=== PATIENT | female | born 1965 | race Caucasian/White ===

== ENCOUNTER 2016-09-25 18:36 | Emergency (ER) | payer MEDICARE, MEDICAID ==
[2016-09-25 19:31] VITALS: BP 116/74
[2016-09-25] MEDS ORDERED: Acetaminophen TAB* 325 MG PO ONE (20:14)
--- NOTE | 2016-09-25 20:50 | RAD ---
INDICATION: Right knee pain after "twisting" injury. COMPARISON: Most recent comparison knee radiograph is dated April 24, 2010 TECHNIQUE: 3 view radiograph of the right knee. FINDINGS: There is an anatomically aligned right knee prosthesis that has been placed since the prior knee radiograph. There are 2 stable proximal tibial medullary screws also unchanged since the prior knee radiograph. There is no joint effusion. IMPRESSION: Interval placement of right knee arthroplasty in this otherwise nonacute knee radiograph. If the patient's symptoms persist, follow-up imaging is recommended.
--- NOTE | 2016-09-25 21:02 | ED ---
Lower Extremity - HPI Summary HPI Summary: 51 yr old female with the chief complaint of right knee pain. The patient has 5 /10 right knee pain, onset this afternoon when she had her right leg planted on ground getting out of car and her daughter was pushing on her to help her get out of the car. The patient complains of pain localized to the medial right knee. she has no other complaints. She has no swelling or bruising. No other complaints. - History of Current Complaint Chief Complaint: UCLowerExtremity Stated Complaint: RIGHT LEG INJURY Time Seen by Provider: 09/25/16 20:08 Hx Last Menstrual Period: APRIL 2015, STATES GOING THROUGH MENOPAUSE - Allergies/Home Medications Allergies/Adverse Reactions: Allergies Allergy/AdvReac Type Severity Reaction Status Date / Time Cyclobenzaprine Allergy Rash Verified 09/25/16 19:33 [From Flexeril] Iodine Allergy Anaphylatic Verified 09/25/16 19:33 Shock Ketorolac Tromethamine Allergy Flushing Verified 09/25/16 19:33 [From Toradol] Naproxen [From Naprosyn] Allergy Rash Verified 09/25/16 19:33 Hydromorphone AdvReac Vomiting Verified 09/25/16 19:33 Home Medications: Home Medications Acetaminophen [Acetaminophen Extra Stren] 1,000 mg PO ONCE PRN 09/25/16 [ History Confirmed 09/25/16] PMH/Surg Hx/FS Hx/Imm Hx Endocrine/Hematology History: Reports: Other Endocrine/Hematological Disorders - she is anticoagulated Cardiovascular History: Reports: Hx Deep Vein Thrombosis Respiratory History: Reports: Hx Asthma - Surgical History Surgery Procedure, Year, and Place: Femoropopliteal Vein Bypass and Left TKA, , RIGHT KNEE REPLACEMENT. MULTIPUL KNEE SURGERIES. [place]. TONSILLECTOMY, 3 C-SECTIONS, GALL BLADDER REMOVAL Infectious Disease History: No Infectious Disease History: Denies: Traveled Outside the [place] in Last 30 Days - Family History Known Family History: Positive: Cardiac Disease, Hypertension, Other - thyroid CA 9mother) - Social History Alcohol Use: Rare Substance Use Type: Reports: None Smoking Status (MU): Never Smoked Tobacco Review of Systems Constitutional: Negative Eyes: Negative Positive: Other - knee pain right All Other Systems Reviewed And Are Negative: Yes Physical Exam Triage Information Reviewed: Yes Vital Signs On Initial Exam: Initial Vitals Temp Pulse Resp BP Pulse Ox 99.2 F 77 16 116/74 100 09/25/16 19:23 09/25/16 19:23 09/25/16 19:23 09/25/16 19:23 09/25/16 19:23 Vital Signs Reviewed: Yes Appearance: Positive: Well-Appearing, No Pain Distress Skin: Positive: Warm Head/Face: Positive: Normal Head/Face Inspection Eyes: Positive: EOMI Respiratory/Lung Sounds: Positive: Other - normal effort Cardiovascular: Positive: Pulses are Symmetrical in both Upper and Lower Extremities Musculoskeletal: Positive: Other - right knee without effusion, without bruising , without deformity. There is a scar from her knee replacement. She has tenderness over the medial collateral ligament. Neurological: Positive: Normal, Sensory/Motor Intact, Alert, Oriented to Person Place, Time, CN Intact II-III Psychiatric: Positive: Normal Diagnostics - Vital Signs Vital Signs Temp Pulse Resp BP Pulse Ox 09/25/16 19:23 99.2 F 77 16 116/74 100 - Laboratory Lab Statement: Any lab studies that have been ordered have been reviewed, and results considered in the medical decision making process. - Radiology knee Xray Interpretation: No Acute Changes Radiology Interpretation Completed By: Radiologist Lower Extremity Course/Dx - Course Course Of Treatment: 51 yr old with medial collateral ligament sprain, and knee pain. DC home, FU with Ortho. - Diagnoses Provider Diagnoses: Medial collateral ligament sprain of knee Discharge - Discharge Plan Condition: Good Disposition: HOME Patient Education Materials: Knee Sprain (ED), Knee Immobilizer (ED) Referrals: Suha Leon, [employer] [Primary Care Provider] - 2 Days
== END 2016-09-25 21:21 | disposition home or self-care (01) ==
LOC: UCCORT 18:36
DX: S83.411A Sprain of medial collateral ligament of right knee, initial encounter (principal); X58.XXXA Exposure to other specified factors, initial encounter; Y93.89 Activity, other specified; Y92.9 Unspecified place or not applicable; Z79.01 Long term (current) use of anticoagulants; Z86.718 Personal history of other venous thrombosis and embolism; J45.909 Unspecified asthma, uncomplicated; Z96.651 Presence of right artificial knee joint; Z90.49 Acquired absence of other specified parts of digestive tract; Z88.5 Allergy status to narcotic agent
CPT/HCPCS: 99213; A9270-GY; G0463

== ENCOUNTER 2018-09-06 12:38 | Emergency (ER) | payer MEDICARE, MEDICAID ==
[2018-09-06 13:02] VITALS: BP 132/77
--- NOTE | 2018-09-06 13:17 | UC ---
Skin Complaint HPI - HPI Summary HPI Summary: small abscess right earlobe x 1 day, started bleeding this morning no pain , no fever, no chills - History of Current Complaint Chief Complaint: UCSkin Time Seen by Provider: 09/06/18 12:56 Stated Complaint: RT EAR COMPLAINT Hx Obtained From: Patient Hx Last Menstrual Period: APRIL 2015, STATES GOING THROUGH MENOPAUSE Onset/Duration: Gradual Onset, Lasting Days - 1, Still Present Timing: Constant Onset Severity: Mild Current Severity: Mild Pain Intensity: 0 Location: Discrete - right earlobe Character: Redness Aggravating Factor(s): Nothing Alleviating Factor(s): Nothing Associated Signs & Symptoms: Positive: Drainage. Negative: Tenderness - Allergy/Home Medications Allergies/Adverse Reactions: Allergies Allergy/AdvReac Type Severity Reaction Status Date / Time cyclobenzaprine Allergy Rash Verified 09/06/18 13:08 hydromorphone Allergy Vomiting Verified 09/06/18 13:08 iodine Allergy Anaphylatic Verified 09/06/18 13:09 Shock ketorolac [From Toradol] Allergy Flushing Verified 09/06/18 13:08 naproxen Allergy Rash Verified 09/06/18 13:08 Home Medications: Home Medications Aspirin 81 mg CHEW TAB* [Aspirin Low Dose TAB*] 81 mg PO DAILY 09/06/18 [ History Confirmed 09/06/18] Cholecalciferol TAB* [Vitamin D TAB*] 50,000 unit PO WEEKLY 09/06/18 [History Confirmed 09/06/18] Levocetirizine Dihydrochloride [Xyzal Allergy 24Hr] 5 mg PO DAILY 09/06/18 [ History Confirmed 09/06/18] raNITIdine HCl [Ranitidine HCl] 75 mg PO DAILY PRN 09/06/18 [History Confirmed 09/06/18] PMH/Surg Hx/FS Hx/Imm Hx - Additional Past Medical History Additional PMH: PERIPHERIAL VASCULAR DISEASE OSTEOARTHRITIS DJD - Surgical History Surgical History: Yes Surgery Procedure, Year, and Place: Femoropopliteal Vein Bypass and Left TKA, , RIGHT KNEE REPLACEMENT. MULTIPUL KNEE SURGERIES. [place]. TONSILLECTOMY, 3 C-SECTIONS, GALL BLADDER REMOVAL - Family History Known Family History: Positive: Cardiac Disease, Hypertension, Other - thyroid CA 9mother) - Social History Alcohol Use: Rare Substance Use Type: None Smoking Status (MU): Never Smoked Tobacco - Immunization History Most Recent Influenza Vaccination: November 2014 Review of Systems All Other Systems Reviewed And Are Negative: Yes Constitutional: Positive: Negative Skin: Positive: Negative Eyes: Positive: Negative ENT: Positive: Negative Respiratory: Positive: Negative Is Patient Immunocompromised?: No Physical Exam Triage Information Reviewed: Yes Appearance: Well-Appearing, No Pain Distress, Well-Nourished Vital Signs: Initial Vital Signs Temp 99.2 F 09/06/18 12:54 Pulse 78 09/06/18 12:54 Resp 18 09/06/18 12:54 BP 132/77 09/06/18 12:54 Pulse Ox 97 09/06/18 12:54 Vital Signs Reviewed: Yes Eye Exam: Normal Eyes: Positive: Conjunctiva Clear ENT: Positive: Normal ENT inspection, Hearing grossly normal, Pharynx normal Neck: Positive: Supple, Nontender, No Lymphadenopathy Respiratory: Positive: Chest non-tender, Lungs clear, Normal breath sounds Skin: Positive: Other - small abscess right earlobe, minimal bleeding, no tenderness Course/Dx - Diagnoses Provider Diagnosis: Abscess of right earlobe Discharge - Sign-Out/Discharge Documenting (check all that apply): Patient Departure All imaging exams completed and their final reports reviewed: No Studies - Discharge Plan Condition: Stable Disposition: HOME Patient Education Materials: Abscess (ED) Referrals: Suha Leon, [employer] [Primary Care Provider] - If Needed Additional Instructions: small abscess right earlobe keep the area clean , no need for antibiotics follow up as needed - Billing Disposition and Condition Condition: STABLE Disposition: Home
== END 2018-09-06 13:14 | disposition home or self-care (01) ==
LOC: UCCORT 12:38
DX: M19.90 Unspecified osteoarthritis, unspecified site (principal)
CPT/HCPCS: 99212; G0463